=== PATIENT | female | born 1965 | race Caucasian/White ===

== ENCOUNTER 2016-10-22 16:10 | Emergency (ER) | payer SELFPAY ==
[~2016-10-22] VITALS: Ht 154.9 cm; Wt 59.1 kg
[~2016-10-22 16:10] MED LIST: ALBU2TAB42 PO; IBUP-1546 PO
[2016-10-22 17:08] VITALS: BP 108/71
[2016-10-22] MEDS ORDERED: BENZOCAINE/MENTHOL LOZENGE [8 LOZENGES/PACKET] PO ONE (17:45)
[2016-10-22] MEDS ORDERED: ACETAMINOPHEN/CODEINE 300-30 MG TABLET PO ONE (17:45)
== END 2016-10-22 18:10 | disposition home or self-care (01) ==
LOC: EMS 16:12
DX: J02.9 Acute pharyngitis, unspecified (principal)
CPT/HCPCS: 99283

== ENCOUNTER 2017-02-10 06:46 | Emergency (ER) | payer MEDICAID ==
[~2017-02-10] VITALS: Ht 160 cm; Wt 63.6 kg
[~2017-02-10 06:46] MED LIST changes: -IBUP-1546 PO
[2017-02-10] MEDS ORDERED: LEVO25TA9 PO (06:50)
[2017-02-10] MEDS ORDERED: ESOM20CA60 PO (06:50)
[2017-02-10 08:12] LABS: INFLUENZA TYPE B NEGATIVE FOR TYPE B (NEGATIVE)
[2017-02-10 08:40] VITALS: BP 144/76
== END 2017-02-10 09:13 | disposition home or self-care (01) ==
LOC: EMS 06:47
DX: J11.1 Influenza due to unidentified influenza virus with other respiratory manifestations (principal); E03.9 Hypothyroidism, unspecified; K21.9 Gastro-esophageal reflux disease without esophagitis
CPT/HCPCS: 87804; 99284